=== PATIENT | male | born 1975 | race Hispanic/Latino ===

== ENCOUNTER 2017-02-21 01:36 | Emergency (ER) | payer SELFPAY ==
[2017-02-21 01:54] VITALS: TEMP 98.5
[2017-02-21] MEDS ORDERED: Sodium Chloride 0.9% 1,000 ML IV STA (02:22)
[2017-02-21 02:37] LABS: BASO % 0.3 % (0.0-2.0); EOS # 0.3 K/uL (0.0-0.7); EOS % 4.5 % (0.0-4.0); HEMATOCRIT 43.6 % (35.0-51.0); LYMPH # 1.7 K/uL (1.0-4.3); LYMPH % 29.7 % (20.0-40.0); MEAN CELL VOLUME 99.6 fl (80.0-94.0); MEAN CORPUSCULAR HEMOGLOBIN 34.2 pg (27.0-31.0); MEAN CORPUSCULAR HGB CONC 34.3 g/dL (33.0-37.0); MEAN PLATELET VOLUME 8.5 fl (7.2-11.7); MONO # 0.7 K/uL (0.0-0.8); MONO % 11.5 % (0.0-10.0); NEUT # 3.1 K/uL (1.8-7.0); NRBC % 0.1 % (0.0-0.0); WHITE BLOOD COUNT 5.6 K/uL (4.8-10.8)
--- NOTE | 2017-02-21 02:43 | ED PDOC ---
HPI: Chest Pain Time Seen by Provider: 02/21/17 01:51 Chief Complaint (Nursing): Chest Pain Chief Complaint (Provider): Chest Pain, Substance Abuse History Per: Patient History/Exam Limitations: no limitations Onset/Duration Of Symptoms: Hrs Current Symptoms Are (Timing): Still Present Severity: Mild Quality: "Pain" Additional Complaint(s): 41 y/o male comes into the ER appearing somnolent, c/o chest pain that began tonight. Patient admits to drinking a lot of alcohol tonight. Notes that he "quit drinking alcohol 4 years ago". Reports that he lives between [place] and [place]. Denies fever, cough, or chills. No sore throat or difficulty breathing. Past Medical History Reviewed: Historical Data, Nursing Documentation, Vital Signs Vital Signs: Last Vital Signs Temp 98.5 F 02/21/17 01:51 Pulse 84 02/21/17 05:55 Resp 18 02/21/17 05:55 BP 98/61 L 02/21/17 05:55 Pulse Ox 100 02/21/17 05:55 - Surgical History Surgical History: Appendectomy - Family History Family History: States: Unknown Family Hx - Social History Current smoker - smoking cessation education provided: Yes (1 pack a day) SMOKER/PACKS PER DAY:: 1 Alcohol: Other (Quit ddrinking 4 years ago) - Allergies Allergies/Adverse Reactions: Allergies Allergy/AdvReac Type Severity Reaction Status Date / Time No Known Allergies Allergy Verified 02/21/17 01:51 FREDY Risk Score for UA/NSTEMI - FREDY Risk Score Age > 64: NO 3 or more CAD Risk Factors: NO Known CAD (Stenosis greater than 50%): NO Aspirin use in past 7 days: NO Severe Angina: NO EKG ST changes greater than 0.5mm: NO Positive Cardiac Marker: NO FREDY Score: 0 Risk %: 5% Wells Criteria for PE - Wells Criteria for Pulmonary Embolism Clinical Signs and Symptoms of DVT: No P.E is #1 Diagnosis, or Equally Likely: No Heart Rate >100: No Immobilization at least 3 days;Surgery previous 4 weeks: No Previous, objectively diagnosed PE or DVT: No Hemoptysis: No Malignancy w/treatment within 6 months, or palliative: No Total Score: 0 Review of Systems ROS Statement: Except As Marked, All Systems Reviewed And Found Negative Constitutional: Negative for: Fever, Chills ENT: Negative for: Throat Pain Cardiovascular: Positive for: Chest Pain Respiratory: Negative for: Cough, Shortness of Breath (Difficulty breathing) Physical Exam - Reviewed Nursing Documentation Reviewed: Yes Vital Signs Reviewed: Yes - Physical Exam Appears: Positive for: Non-toxic (poor hygiene, alchol on breathe), No Acute Distress Head Exam: Positive for: ATRAUMATIC, NORMAL INSPECTION, NORMOCEPHALIC Skin: Positive for: Normal Color, Warm, DRY Cardiovascular/Chest: Positive for: Regular Rate, Rhythm. Negative for: Murmur Respiratory: Positive for: Normal Breath Sounds. Negative for: Rales, Rhonchi, Wheezing Gastrointestinal/Abdominal: Positive for: Soft. Negative for: Tenderness Extremity: Positive for: Normal ROM Neurologic/Psych: Positive for: Oriented, Other (Somnolent but arousable) - Laboratory Results Result Diagrams: 02/21/17 02:32 02/21/17 02:32 - ECG O2 Sat by Pulse Oximetry: 98 (RA) Pulse Ox Interpretation: Normal Medical Decision Making Medical Decision Making: Impression: * chest pain that began tonight. EKG sinus tachycardia- rule out alcohol intoxication Plans: * Blood labs * IV fluids EKG: Sinus tachycardia 107 labs show slightly elevated NA, and elevated LFTS. troponin negative. pt sleeping in bed in NAD throughout ER stay. Alcohol level elevated. 545 am - reevaluated, pt sleeping throughout pt made aware of lab results pt wiht stable gait and stable vital signs Scribe Attestation: Documented by Brittnee calderon, acting as a scribe for Bang Swenson. Provider Scribe Attestation: All medical record entries made by the Scribe were at my direction and personally dictated by me. I have reviewed the chart and agree that the record accurately reflects my personal performance of the history, physical exam, medical decision making, and the department course for this patient. I have also personally directed, reviewed, and agree with the discharge instructions and disposition. Disposition - Clinical Impression Clinical Impression: Alcohol intoxication - Patient ED Disposition Is Patient to be Admitted: No Counseled Patient/Family Regarding: Studies Performed, Diagnosis, Need For Followup - Disposition Referrals: [facility] [Outside] [facility] [Outside] Disposition: Routine/Home Disposition Time: 03:00 Condition: IMPROVED Additional Instructions: follow up with your primary doctor in 1-2 days return to the ED With any worsening or concerning symptoms Instructions: Alcohol Intoxication (ED) Forms: [employer] (Kiswahili)
[2017-02-21 02:45] LABS: ALB/GLOB RATIO 1.2 (1.0-2.1); ALCOHOL SERUM 252 mg/dl (0-10); ALKALINE PHOSPHATASE 55 U/L (38-126); ALT/SGPT 99 U/L (21-72); AST/SGOT 72 U/L (17-59); BILIRUBIN,TOTAL 0.3 mg/dl (0.2-1.3); BLOOD UREA NITROGEN 10 mg/dl (9-20); CALCIUM 8.7 mg/dL (8.4-10.2); CARBON DIOXIDE 24 mmol/L (22-30); CHLORIDE 110 mmol/L (98-107); GFR AFRICAN-AMERICAN > 60; GLUCOSE,RANDOM 100 mg/dL (75-110); POTASSIUM 4.1 MMOL/L (3.6-5.0); SODIUM 151 mmol/l (132-148); TOTAL PROTEIN 7.6 G/DL (6.3-8.2)
[2017-02-21 06:03] VITALS: BP 98/61; PULSE 84; RESP 18
[2017-02-21 06:09] VITALS: O2SAT 98
== END 2017-02-21 06:05 | disposition home or self-care (01) ==
LOC: H.ER 01:36
DX: R07.89 Other chest pain (principal); F10.10 Alcohol abuse, uncomplicated
CPT/HCPCS: 80053; 84484; 85025; 96360; 96361; 99284; G0480; J7040

== ENCOUNTER 2017-02-21 23:37 | Emergency (ER) | payer SELFPAY ==
[2017-02-21 23:45] VITALS: TEMP 98.6
[2017-02-22 00:38] LABS: ALB/GLOB RATIO 1.3 (1.0-2.1); ALCOHOL SERUM 281 mg/dl (0-10); ALKALINE PHOSPHATASE 57 U/L (38-126); ALT/SGPT 92 U/L (21-72); AST/SGOT 82 U/L (17-59); BILIRUBIN,TOTAL 0.3 mg/dl (0.2-1.3); BLOOD UREA NITROGEN 9 mg/dl (9-20); CALCIUM 8.6 mg/dL (8.4-10.2); CARBON DIOXIDE 23 mmol/L (22-30); CHLORIDE 111 mmol/L (98-107); GFR AFRICAN-AMERICAN > 60; GLUCOSE,RANDOM 108 mg/dL (75-110); POTASSIUM 4.1 MMOL/L (3.6-5.0); SODIUM 149 mmol/l (132-148); TOTAL PROTEIN 7.5 G/DL (6.3-8.2)
--- NOTE | 2017-02-22 04:24 | ED PDOC ---
HPI: Psych/Substance Abuse Time Seen by Provider: 02/22/17 00:00 Chief Complaint (Nursing): Alcohol Ingestion Chief Complaint (Provider): etoh History Per: Patient, EMS Additional History Per: Patient, EMS Additional Complaint(s): 41 y/o male brought in by EMS for eval of acute alcohol intoxication. Patient admits to drinking "$500 worth of liquor" tonight, states he was resting outside when EMS picked him up. Patient states he is on a "path to destruction " with his alcohol after he found his cheating on him and they are now getting a divorce. Patient denies suicidal ideations, but states he could potentially "drink himself to ". Denies homicidal ideations, hallucinations, acute medical complaints. Past Medical History Reviewed: Historical Data, Nursing Documentation, Vital Signs Vital Signs: Last Vital Signs Temp 98.6 F 02/21/17 23:40 Pulse 116 H 02/21/17 23:40 Resp 16 02/21/17 23:40 BP 135/86 02/21/17 23:40 Pulse Ox 98 02/21/17 23:40 - Medical History PMH: No Chronic Diseases - Surgical History Surgical History: Appendectomy - Family History Family History: States: Unknown Family Hx - Allergies Allergies/Adverse Reactions: Allergies Allergy/AdvReac Type Severity Reaction Status Date / Time No Known Allergies Allergy Verified 02/21/17 01:51 Review of Systems ROS Statement: Except As Marked, All Systems Reviewed And Found Negative Psych: Positive for: Depression Physical Exam - Reviewed Nursing Documentation Reviewed: Yes Vital Signs Reviewed: Yes - Physical Exam Appears: Positive for: Well, Non-toxic, No Acute Distress Head Exam: Positive for: ATRAUMATIC, NORMAL INSPECTION, NORMOCEPHALIC Skin: Positive for: Normal Color Eye Exam: Positive for: Normal appearance, EOMI, PERRL ENT: Positive for: Normal ENT Inspection Cardiovascular/Chest: Positive for: Regular Rate, Rhythm Respiratory: Positive for: Normal Breath Sounds Gastrointestinal/Abdominal: Positive for: Normal Exam Back: Positive for: Normal Inspection Extremity: Positive for: Normal ROM Neurologic/Psych: Positive for: Alert, Oriented - Laboratory Results Result Diagrams: 02/22/17 00:21 - ECG O2 Sat by Pulse Oximetry: 98 - Progress ED Course And Treament: labs, crisis eval 5:30 Patient awake, alert, oriented x3. Patient evaluated by antisqueak worker; does not meet criteria for admission at this time. Stable for discharge. Disposition - Clinical Impression Clinical Impression: Alcohol use disorder, Substance abuse - Patient ED Disposition Is Patient to be Admitted: No Counseled Patient/Family Regarding: Studies Performed, Diagnosis, Need For Followup - Disposition Disposition: Routine/Home Disposition Time: 05:36 Condition: STABLE Instructions: Alcohol Use Disorder (ED), Polysubstance Abuse (ED)
[2017-02-22 05:36] LABS: RBC URINE 1 /hpf (0-3); URINE BILIRUBIN NEGATIVE (NEGATIVE); URINE BLOOD NEGATIVE (NEGATIVE); URINE COLOR YELLOW (YELLOW); URINE GLUCOSE (UA) NEG (Normal); URINE KETONE NEGATIVE (NEGATIVE); URINE LEUKOCYTE ESTERASE NEG Leu/uL (Negative); URINE PROTEIN NEGATIVE (NEGATIVE); URINE UROBILINOGEN 0.2-1.0 mg/dL (0.2-1.0); WBC URINE 1 /hpf (0-5)
[2017-02-22 06:45] VITALS: BP 127/79; PULSE 84; RESP 18; O2SAT 99
== END 2017-02-22 06:15 | disposition home or self-care (01) ==
LOC: H.ER 23:37
DX: F10.10 Alcohol abuse, uncomplicated (principal)
CPT/HCPCS: 80053; 81003; 82948; 99282; G0480